=== PATIENT | male | born 1985 | race African-American/Black ===

== ENCOUNTER 2018-12-13 15:52 | Emergency (ER) | payer OTHER ==
[~2018-12-13] VITALS: Ht 182.9 cm; Wt 79.4 kg
[2018-12-13 16:21] VITALS: BP 114/62
--- NOTE | 2018-12-13 16:38 | PHYS DOC ---
Past Medical History Past Medical History: No Pertinent History (GEOVANNA GURROLA APRN) Past Surgical History: No Surgical History (GEOVANNA GURROLA APRN) Alcohol Use: Occasionally Drug Use: None (GEOVANNA GURROLA APRN) Adult General Chief Complaint Chief Complaint: BACK PAIN OR INJURY HPI HPI Patient is a 33 year old male with a history of herniated disc and sciatica who presents to the ED today complaining of a stabbing 10 out of 10 left low back pain radiating to the left lower extremity that began yesterday after he lifted a 25 pound dumbbell. Patient states the pain is worse when he is standing up straight. He states he took Tylenol and ibuprofen with minimal relief. Denies any saddle paresthesias, denies any loss of bowel bladder function. He states has been following up with his own doctor for chronic back pain and is supposed to start him on injections to his spine. (GEOVANNA GURORLA APRN) Review of Systems Review of Systems Constitutional: Denies fever or chills [] GI: Denies abdominal pain, nausea, vomiting, bloody stools or diarrhea [] : Denies dysuria or hematuria [] Musculoskeletal: Reports left low back pain Integument: Denies rash or skin lesions [] Neurologic: Denies headache, focal weakness or sensory changes [] All other systems were reviewed and found to be within normal limits, except as documented in this note. (GEOVANNA GURROLA APRN) Current Medications Current Medications Current Medications Medications (Trade) Dose Ordered Sig/Javier Start Time Stop Time Status Last Admin Dose Admin Gabapentin (Neurontin) 300 mg 1X ONCE 12/13/18 17:00 12/13/18 17:01 DC 12/13/18 17:16 300 MG Ketorolac Tromethamine (Toradol Im) 60 mg 1X ONCE 12/13/18 17:00 12/13/18 17:01 DC 12/13/18 16:57 60 MG Methylprednisolone Sodium Succinate (SOLU-Medrol 125MG VIAL) 125 mg 1X ONCE 12/13/18 17:00 12/13/18 17:01 DC 12/13/18 16:56 125 MG (JADA LIAO MD) Allergies Allergies Allergies Coded Allergies Type Severity Reaction Last Updated Verified No Known Drug Allergies 12/13/18 No (JADA LIAO MD) Physical Exam Physical Exam Constitutional: Well developed, well nourished, no acute distress, non-toxic appearance. [] Abdomen: Bowel sounds normal, soft, no tenderness, no masses, no pulsatile masses. [] Skin: Warm, dry, no erythema, no rash. [] Back: Mild tenderness on palpation of the left SI joint, no midline lumbar spine tenderness, no CVA tenderness. Positive straight leg raise the left lower extremity at approximately 45�. Extremities: No tenderness, no cyanosis, no clubbing, ROM intact, no edema. [] Neurologic: Alert and oriented X 3, normal motor function, normal sensory function, no focal deficits noted. [] Psychologic: Affect normal, judgement normal, mood normal. [] (GEOVANNA GURROLA APRN) Current Patient Data Vital Signs Vital Signs Date Time Temp Pulse Resp B/P (MAP) Pulse Ox O2 Delivery O2 Flow Rate FiO2 12/13/18 16:21 98.5 70 16 114/62 (79) 97 Room Air 98.5 (JADA LIAO MD) EKG EKG [] (GEOVANNA GURROLA APRN) Radiology/Procedures Radiology/Procedures [] (GEOVANNA GURROLA APRN) Course & Med Decision Making Course & Med Decision Making Pertinent Labs and Imaging studies reviewed. (See chart for details) This is a 33-year-old male patient who presents to the ED today with lumbosacral strain with sciatica began yesterday after lifting a 25lb dumbbell. No cauda equina syndrome symptoms. Patient discharged with Medrol Dosepak,, gabapentin and Valium. Follow-up with his own doctor in one week as well as the pain clinic (GEOVANNA GURROLA APRN) Course & Med Decision Making Staff Physician Addendum: I was working in the ER during the course of this patient's visit. I was available for consultation as needed, but I was not directly involved in the care of this patient. (JADA LIAO MD) Dragon Disclaimer Dragon Disclaimer This electronic medical record was generated, in whole or in part, using a voice recognition dictation system. (GEOVANNA GURROLA APRN) Departure Departure Impression: Primary Impression: Acute lumbosacral myofascial strain Additional Impression: Sciatica, left side Disposition: 01 HOME, SELF-CARE Condition: STABLE Referrals: NO PCP (PCP) JAMES CARVAJAL MD You can follow-up with the pain clinic doctor or the provided pain clinic doctor. Patient Instructions: Lumbosacral Strain, Sciatica, [id number] Additional Instructions: You were evaluated in the emergency room for lumbosacral strain with sciatica. Take the prescribed medications as ordered. Consider getting a heating pad and use for your back. Please follow-up with your pain doctor or the provided pain clinic doctor. Also continue following up with the regular doctor Scripts Diclofenac Potassium (DICLOFENAC POTASSIUM) 50 Mg Tablet 1 TAB PO BID, #20 TAB 0 Refills Prov: GEOVANNA GURROLA APRN 12/13/18 Diazepam (VALIUM) 5 Mg Tablet 5 MG PO TID, #21 TAB Prov: GEOVANNA GURROLA APRN 12/13/18 Methylprednisolone (MEDROL) 4 Mg Tab.ds.pk 1 PKG PO UD, #1 PKG Prov: GEOVANNA GURROLA APRN 12/13/18 Gabapentin (GABAPENTIN) 600 Mg Tablet 600 MG PO TID PRN for PAIN, #30 TAB Prov: GEOVANNA GURROLA APRN 12/13/18 Problem Qualifiers Primary Impression: Acute lumbosacral myofascial strain Encounter type: initial encounter Qualified Codes: S39.012A - Strain of muscle, fascia and tendon of lower back, initial encounter GEOVANNA GURROLA APRN Dec 13, 2018 16:38 JADA LIAO MD Dec 16, 2018 09:07
[2018-12-13] MEDS ORDERED: DICL50TA2 PO (16:47)
[2018-12-13] MEDS ORDERED: METH4TAB2 PO (16:47)
[2018-12-13] MEDS ORDERED: DIAZ5TAB PO (16:47)
[2018-12-13] MEDS ORDERED: GABA600T7 PO (16:47)
[2018-12-13] MEDS ORDERED: KETOROLAC 60 MG/2 ML VIAL. IM ONE (17:00)
[2018-12-13] MEDS ORDERED: methylPREDNISolone SOD SUCC PF 125 MG/2 ML VIAL. IM ONE (17:00)
[2018-12-13] MEDS ORDERED: GABAPENTIN 300 MG CAPSULE. PO ONE (17:00)
== END 2018-12-13 18:14 | disposition home or self-care (01) ==
LOC: ER 15:52
DX: S39.012A Strain of muscle, fascia and tendon of lower back, initial encounter (principal); M54.42 Lumbago with sciatica, left side; G89.29 Other chronic pain; X50.0XXA Overexertion from strenuous movement or load, initial encounter; Y93.89 Activity, other specified; Y92.89 Other specified places as the place of occurrence of the external cause; Y99.8 Other external cause status
CPT/HCPCS: 96372; 99284; J1885; J2930